=== PATIENT | female | born 1990 | race Caucasian/White ===

== ENCOUNTER 2016-06-28 23:04 | Emergency (ER) | payer MEDICAID ==
[~2016-06-28] VITALS: Ht 165.1 cm; Wt 60.9 kg
[~2016-06-28 23:04] MED LIST: AMOXICILLIN 50500 MG PO; AMOXICILLIN 8751 TAB PO; BIRTH CONTROL PATCH; BIRTH CONTROL TOP; CEPHALEXIN500 M1 PO; CLINDAMYCIN300 MG PO; CODEINE-GUAIFE120 ML PO; DELTASONE20 M1 PO; ENSKYCE 0.15 MG1 TAB PO; FLEXERIL; FLEXERIL10 MG PO; GOOD NEIGHBOR200 M1 PO; GUAIFEN/CODEIN120 ML PO; IBUPROFEN200 M1 PO; LORAZEPAM0.5 M1 PO; NAPROSYN500 MG PO; NO HOME MEDICATIONS; NORCO 325 MG-51 TAB PO; ORTHO EVRA1 TD1 TD; PEN-VEE K250 MG PO; PERCOCET 7.5/321 TA1 PO; PHENERGAN25 M4 RC; PRENATAL1 TA1 PO; TRIAMCINOLONE A15 GM TP; TYLENOL 325MG325 MG PO; TYLENOL COLD &1 TAB PO; TYLENOL SINUS C PO
[2016-06-29 00:56] VITALS: BP 110/67
== END 2016-06-29 00:56 | disposition home or self-care (01) ==
LOC: ED 23:04
DX: R53.1 Weakness (principal); R53.81 Other malaise; X30.XXXA Exposure to excessive natural heat, initial encounter; Y92.69 Other specified industrial and construction area as the place of occurrence of the external cause; Y99.0 Civilian activity done for income or pay
CPT/HCPCS: J2405; J7030

== ENCOUNTER → 2017-11-06 | Outpatient (CLI) | payer SELFPAY | LOC: LAB 09:28 | DX: J02.9 Acute pharyngitis, unspecified (principal); R50.9 Fever, unspecified ==

== ENCOUNTER 2017-11-19 07:52 | Emergency (ER) | payer SELFPAY ==
[~2017-11-19] VITALS: Ht 167.6 cm; Wt 72.7 kg
[2017-11-19] MEDS ORDERED: GOOD NEIGHBOR200 M3 PO (08:07)
[2017-11-19 08:31] LABS: EOS # 0.3 (0.04-0.40); EOS % 2.8 % (1.0-5.0); HEMATOCRIT 42.2 % (37.0-47.0); HEMOGLOBIN 14.2 g/dL (12.5-16.0); LYMPH# 2.7 (1.50-4.00); MEAN CELL VOLUME 94 fl (78-100); MEAN CORPUSCULAR HEMOGLOBIN 32 pg (27-31); MEAN CORPUSCULAR HGB CONC 34 g/dL (33-37); MEAN PLATELET VOLUME 10.2 fl (7.4-10.4); MONO # 1.1 (0.20-0.80); NEU # 7.5 (1.40-6.50); PLATELET COUNT 276 K/mm3 (130-400); RED BLOOD COUNT 4.49 M/mm3 (4.10-5.30); WHITE BLOOD COUNT 11.6 K/mm3 (4.8-10.8)
[2017-11-19] MEDS ORDERED: ZITHROMAX Z PA250 MG PO (08:48)
[2017-11-19] MEDS ORDERED: ULTRAM50 M1 PO (08:48)
[2017-11-19 08:55] VITALS: BP 102/43
== END 2017-11-19 08:57 | disposition home or self-care (01) ==
LOC: ED 07:52
PROVIDERS: Nurse Practitioner
DX: J02.9 Acute pharyngitis, unspecified (principal); F17.200 Nicotine dependence, unspecified, uncomplicated

== ENCOUNTER 2019-04-15 19:57 | Emergency (ER) | payer MEDICAID ==
[~2019-04-15] VITALS: Ht 165.1 cm; Wt 69.0 kg
[~2019-04-15 19:57] MED LIST changes: +GOOD NEIGHBOR200 M3 PO; +ULTRAM50 M1 PO; +ZITHROMAX Z PA250 MG PO
[2019-04-15] MEDS ORDERED: AUGMENTIN 875-1 EAC1 PO (20:36)
[2019-04-15] MEDS ORDERED: PERCOCET 325 MG1 TA2 PO (20:37)
[2019-04-15 20:48] VITALS: BP 152/78
== END 2019-04-15 20:48 | disposition home or self-care (01) ==
LOC: ED 19:57
DX: K02.9 Dental caries, unspecified (principal); K05.30 Chronic periodontitis, unspecified; F17.210 Nicotine dependence, cigarettes, uncomplicated; Z79.1 Long term (current) use of non-steroidal anti-inflammatories (NSAID)

== ENCOUNTER 2020-03-04 07:22 | Emergency (ER) | payer MEDICAID ==
[~2020-03-04 07:22] MED LIST changes: +AUGMENTIN 875-1 EAC1 PO; +PERCOCET 325 MG1 TA2 PO
[2020-03-04 07:42] VITALS: BP 121/81
[2020-03-04] MEDS ORDERED: PROAIR HFA0.09 MG/AC IH (07:47)
[2020-03-04 08:25] LABS: EOS # 0.2 (0.04-0.40); EOS % 2.3 % (1.0-5.0); HEMATOCRIT 42.9 % (37.0-47.0); HEMOGLOBIN 14.2 g/dL (12.5-16.0); LYMPH# 2.4 (1.50-4.00); MEAN CELL VOLUME 95 fl (78-100); MEAN CORPUSCULAR HEMOGLOBIN 31 pg (27-31); MEAN CORPUSCULAR HGB CONC 33 g/dL (33-37); MEAN PLATELET VOLUME 11.1 fl (7.4-10.4); MONO # 0.8 (0.20-0.80); NEU # 5.2 (1.40-6.50); PLATELET COUNT 269 K/mm3 (130-400); RED BLOOD COUNT 4.52 M/mm3 (4.10-5.30); RED CELL DISTRIBUTION WIDTH 12.1 % (11.5-14.5); WHITE BLOOD COUNT 8.6 K/mm3 (4.8-10.8)
[2020-03-04 08:33] LABS: ALBUMIN 4.3 g/dL (3.5-5.0)
[2020-03-04 08:35] LABS: CALCIUM 8.8 mg/dL (8.3-10.5)
[2020-03-04 08:36] LABS: TOTAL PROTEIN 7.1 g/dL (6.4-8.3)
[2020-03-04 08:38] LABS: D-DIMER 0.27 mg/L FEU (0.15-0.50); TOTAL BILIRUBIN 0.3 mg/dL (0.2-1.2)
== END 2020-03-04 11:30 | disposition home or self-care (01) ==
LOC: ED 07:22
PROVIDERS: Physician Assistant
DX: R06.02 Shortness of breath (principal); Z20.822 Contact with and (suspected) exposure to COVID-19; Z87.891 Personal history of nicotine dependence; Z82.49 Family history of ischemic heart disease and other diseases of the circulatory system; Z83.3 Family history of diabetes mellitus; Z79.1 Long term (current) use of non-steroidal anti-inflammatories (NSAID); Z79.51 Long term (current) use of inhaled steroids

== ENCOUNTER → 2020-03-11 | Outpatient (CLI) | payer MEDICAID ==
[2020-03-04 07:42] VITALS: BP 121/81
[~2020-03-11] MED LIST changes: +PROAIR HFA0.09 MG/AC IH
== END ==
LOC: RAD 14:59
DX: R06.02 Shortness of breath (principal)
CPT/HCPCS: Q9967

== ENCOUNTER 2020-05-16 14:34 | Emergency (ER) | payer MEDICAID ==
[2020-05-16] MEDS ORDERED: NORCO 325 MG-51 TA1 PO (17:10)
[2020-05-16 17:27] VITALS: BP 122/82
== END 2020-05-16 17:22 | disposition home or self-care (01) ==
LOC: ED 14:34
DX: S82.142A Displaced bicondylar fracture of left tibia, initial encounter for closed fracture (principal); S92.412A Displaced fracture of proximal phalanx of left great toe, initial encounter for closed fracture; S92.312A Displaced fracture of first metatarsal bone, left foot, initial encounter for closed fracture; J45.909 Unspecified asthma, uncomplicated; F17.210 Nicotine dependence, cigarettes, uncomplicated; V29.9XXA Motorcycle rider (driver) (passenger) injured in unspecified traffic accident, initial encounter
CPT/HCPCS: A4570; J1885; L1830

== ENCOUNTER → 2020-05-20 | Outpatient (CLI) | payer MEDICAID ==
[2020-05-16 17:27] VITALS: BP 122/82
[~2020-05-20] MED LIST changes: +ACETAMINOPHEN-H1 TA2 PO; +CLEOCIN HCL150 M1 PO; +HYDROXYZINE HYD50 M1 PO; +NORCO 325 MG-51 TA1 PO; +SERTRALINE HYD100 MG PO
== END ==
LOC: RAD 17:06
DX: S83.8X2A Sprain of other specified parts of left knee, initial encounter (principal)

== ENCOUNTER 2020-08-19 12:57 | Emergency (ER) | payer MEDICAID ==
[~2020-08-19 12:57] MED LIST changes: -ACETAMINOPHEN-H1 TA2 PO; -CLEOCIN HCL150 M1 PO; -HYDROXYZINE HYD50 M1 PO; -SERTRALINE HYD100 MG PO
[2020-08-19] MEDS ORDERED: CLEOCIN HCL150 M1 PO (13:10)
[2020-08-19] MEDS ORDERED: SERTRALINE HYD100 MG PO (13:10)
[2020-08-19] MEDS ORDERED: HYDROXYZINE HYD50 M1 PO (13:10)
[2020-08-19] MEDS ORDERED: ACETAMINOPHEN-H1 TA2 PO (13:11)
[2020-08-19 14:03] LABS: BASO # 0.06 (0.02-0.10); EOS # 0.37 (0.04-0.40); EOS % 3.5 % (1.0-5.0); HEMATOCRIT 42.3 % (37.0-47.0); HEMOGLOBIN 14.2 g/dL (12.5-16.0); LYMPH# 2.03 (1.50-4.00); MEAN CELL VOLUME 93 fl (78-100); MEAN CORPUSCULAR HEMOGLOBIN 31 pg (27-31); MEAN CORPUSCULAR HGB CONC 34 g/dL (33-37); MEAN PLATELET VOLUME 10.5 fl (7.4-10.4); MONO # 0.56 (0.20-0.80); NEU # 7.41 (1.40-6.50); PLATELET COUNT 294 K/mm3 (130-400); RED BLOOD COUNT 4.56 M/mm3 (4.10-5.30); RED CELL DISTRIBUTION WIDTH 12.1 % (11.5-14.5); WHITE BLOOD COUNT 10.5 K/mm3 (4.8-10.8)
[2020-08-19 14:13] LABS: ALBUMIN 3.8 g/dL (3.5-5.0)
[2020-08-19 14:14] LABS: POTASSIUM 4.3 mmol/L (3.5-5.1)
[2020-08-19 14:15] LABS: CALCIUM 8.8 mg/dL (8.3-10.5)
[2020-08-19 14:16] LABS: TOTAL PROTEIN 6.6 g/dL (6.4-8.3)
[2020-08-19 14:18] LABS: TOTAL BILIRUBIN 0.3 mg/dL (0.2-1.2)
[2020-08-19 16:46] VITALS: BP 148/93
== END 2020-08-19 16:21 | disposition home or self-care (01) ==
LOC: ED 12:57
PROVIDERS: Nurse Practitioner Family
DX: K04.7 Periapical abscess without sinus (principal); F41.9 Anxiety disorder, unspecified; F32.9 Major depressive disorder, single episode, unspecified; J45.909 Unspecified asthma, uncomplicated; Z79.899 Other long term (current) drug therapy
CPT/HCPCS: J1885; J3490

== ENCOUNTER 2020-08-21 08:04 | Outpatient (RCR) | payer MEDICAID ==
[~2020-08-21 08:04] MED LIST changes: +ACETAMINOPHEN-H1 TA2 PO; +CLEOCIN HCL150 M1 PO; +HYDROXYZINE HYD50 M1 PO; +SERTRALINE HYD100 MG PO
== END 2020-10-06 | disposition home or self-care (01) ==
LOC: PT
DX: S83.512A Sprain of anterior cruciate ligament of left knee, initial encounter (principal)

== ENCOUNTER 2020-08-26 23:36 | Outpatient (RCR) | payer MEDICAID ==
[2020-08-20] VITALS: BP 135/69
[2020-08-20 07:49] VITALS: BP 114/49
--- NOTE | 2020-08-20 07:50 | NUR ---
patient ambulatory to room 4 for outpatient iv clindamycin. patient reports feeling "pretty good" this morning. reports that swelling in face has gone down since starting iv antibiotics and believes things are getting better. states "it's crazy as soon as i started the iv abx i suddenly felt better and i could tell the difference"
[2020-08-20 16:15] VITALS: BP 127/81
[2020-08-20 23:55] VITALS: BP 140/81
[2020-08-21 00:38] VITALS: BP 120/79
[2020-08-21 00:55] VITALS: BP 127/76
[2020-08-21 08:25] VITALS: BP 134/76
[2020-08-21 16:38] VITALS: BP 126/64
[2020-08-21 23:50] VITALS: BP 142/88
--- NOTE | 2020-08-22 00:01 | NUR ---
C/o of INT site hurting. Pt stated "it feels like it's up there, hurts when I been my arm. Pt asked Roxy Zapien and myself to have INT restarted. Attempted x 1 to start IV in left wrist. Pt then asked if I could just re-tape it. Skin around insert site, none tender to touch, no redness. INT flushed easily with normal saline. IV still in place from original site placement.
[2020-08-22 08:24] VITALS: BP 134/87
[2020-08-22 08:50] VITALS: BP 130/91
[2020-08-22 16:27] VITALS: BP 120/84
[2020-08-22 17:06] VITALS: BP 130/85
[2020-08-22 23:45] VITALS: BP 124/81
[2020-08-23 00:25] VITALS: BP 119/80
[2020-08-23 08:23] VITALS: BP 120/74
[2020-08-23 16:10] VITALS: BP 135/87
[2020-08-24] VITALS: BP 133/79
--- NOTE | 2020-08-24 00:30 | NUR ---
Requests nausea medication. Order received for Zofran ODT x1 by Harry Rodgers APRN.
[2020-08-24 07:29] VITALS: BP 134/85
[2020-08-24 17:28] VITALS: BP 128/86
[2020-08-24 23:52] VITALS: BP 132/82
[2020-08-25 00:23] VITALS: BP 129/83
[2020-08-25 08:51] VITALS: BP 112/63
[2020-08-25 16:06] VITALS: BP 122/55
[2020-08-25 16:40] VITALS: BP 122/65
[2020-08-25 23:40] VITALS: BP 120/74
[2020-08-26 07:48] VITALS: BP 135/79
[2020-08-26 15:58] VITALS: BP 114/74
[2020-08-26 23:43] VITALS: BP 151/89
[2020-08-27 00:25] VITALS: BP 147/87
== END 2020-08-27 00:40 | disposition home or self-care (01) ==
LOC: AMSURD 23:36
DX: Z79.899 Other long term (current) drug therapy (principal)
CPT/HCPCS: J3490

== ENCOUNTER → 2020-09-21 | Outpatient (CLI) | payer MEDICAID | LOC: CARDREHAB 08:50 → CARDLAB 14:23 | DX: G47.30 Sleep apnea, unspecified (principal); R06.83 Snoring | CPT/HCPCS: G0399 ==

== ENCOUNTER 2020-10-07 08:14 | Outpatient (RCR) | payer MEDICAID ==
[2020-11-03] MEDS ORDERED: AUGMENTIN 875-1 EAC1 PO (18:48)
[2020-12-23] MEDS ORDERED: NORCO 325 MG-51 TA1 PO (13:39)
[2020-12-23] MEDS ORDERED: CLEOCIN HCL150 M1 PO (13:39)
== END 2021-01-05 | disposition home or self-care (01) ==
LOC: PT
DX: S83.512A Sprain of anterior cruciate ligament of left knee, initial encounter (principal)

== ENCOUNTER 2020-11-03 18:09 | Emergency (ER) | payer MEDICAID ==
[2020-11-03] MEDS ORDERED: AUGMENTIN 875-1 EAC1 PO (18:48)
[2020-11-03 19:09] VITALS: BP 123/66
== END 2020-11-03 19:10 | disposition home or self-care (01) ==
LOC: ED 18:09
DX: K04.7 Periapical abscess without sinus (principal); F41.9 Anxiety disorder, unspecified; F17.210 Nicotine dependence, cigarettes, uncomplicated; Z91.19 Patient's noncompliance with other medical treatment and regimen; Z79.899 Other long term (current) drug therapy

== ENCOUNTER 2020-12-23 12:35 | Emergency (ER) | payer MEDICAID ==
[2020-12-23] MEDS ORDERED: NORCO 325 MG-51 TA1 PO (13:39)
[2020-12-23] MEDS ORDERED: CLEOCIN HCL150 M1 PO (13:39)
[2020-12-23 13:54] VITALS: BP 119/70
== END 2020-12-23 13:55 | disposition home or self-care (01) ==
LOC: ED 12:35
DX: K04.7 Periapical abscess without sinus (principal); F17.210 Nicotine dependence, cigarettes, uncomplicated
CPT/HCPCS: J1885

== ENCOUNTER 2021-08-19 23:24 | Emergency (ER) | payer MEDICAID ==
[~2021-08-19] VITALS: Ht 167.6 cm; Wt 87.7 kg
[2021-08-20 00:58] VITALS: BP 124/68
== END 2021-08-20 01:00 | disposition home or self-care (01) ==
LOC: ED 23:24
DX: N93.9 Abnormal uterine and vaginal bleeding, unspecified (principal); F17.210 Nicotine dependence, cigarettes, uncomplicated; Z90.710 Acquired absence of both cervix and uterus; Z28.310 Unvaccinated for COVID-19
CPT/HCPCS: J1885

== ENCOUNTER 2023-01-25 09:37 | Outpatient (RCR) | payer MEDICAID | END 2023-02-18 | disposition home or self-care (01) | LOC: PT | DX: Z98.890 Other specified postprocedural states (principal) ==

== ENCOUNTER 2023-02-20 08:00 | Outpatient (RCR) | payer MEDICAID | END 2023-03-21 | disposition home or self-care (01) | LOC: PT | DX: Z98.890 Other specified postprocedural states (principal) ==

== ENCOUNTER 2023-03-22 08:00 | Outpatient (RCR) | payer MEDICAID | END 2023-04-19 | disposition home or self-care (01) | LOC: PT | DX: R26.89 Other abnormalities of gait and mobility (principal); Z98.890 Other specified postprocedural states ==